=== PATIENT | male | born 1975 | race Caucasian/White ===

== ENCOUNTER 2017-07-23 08:13 | Emergency (ER) | payer OTHER | END 2017-07-23 11:18 | disposition home or self-care (01) | LOC: FER 08:13 | DX: M25.461 Effusion, right knee (principal); Z90.49 Acquired absence of other specified parts of digestive tract; Z87.442 Personal history of urinary calculi | CPT/HCPCS: 73564; 87070; 87205; J1885 ==

== ENCOUNTER → 2021-12-18 | Emergency (ER) | payer OTHER ==
[~2021-12-18] MED LIST: BACTRIM DS TAB1 EACH PO; CYCLOBENZAPRINE10 MG PO; MEDROL 4MG DOSEP4 MG PO; NAPROXEN500 MG PO; OXY-IR 5MG5 MG PO
[2021-12-18 19:46] LABS: EOSINOPHIL 1.5 % (0-5); HCT 47.8 % (42.0-52.0); HGB 16.1 g/dl (13.2-18.0); LYMPHOCYTE 33.9 % (15-48); MCH 30.4 pg (25.0-31.0); MCHC 33.7 g/dL (32.0-36.0); MCV 90.2 fL (78.0-100.0); MONOCYTE 7.9 % (0-12); MPV 9.7 fL (6.0-9.5); NEUTROPHIL 55.3 % (41-80); NRBC 0; PLT 345 K/uL (150-400); RDW 12.4 % (11.5-14.0); WBC 7.9 K/uL (4.0-10.5)
[2021-12-18 19:58] LABS: ALBUMIN 4.5 g/dL (3.4-5.0); BILIRUBIN - TOTAL 0.3 mg/dL (0.2-1.0); BUN/CREAT RATIO (CALC) 14.8 RATIO; CREATININE 0.88 mg/dL (0.67-1.17); GLOBULIN (CALCULATION) 3.8 g/dL; TOTAL PROTEIN 8.3 g/dL (6.4-8.2)
== END | disposition home or self-care (01) ==
LOC: FER 18:34
PROVIDERS: Nurse Practitioner Family
DX: R07.89 Other chest pain (principal); Z86.16 Personal history of COVID-19
CPT/HCPCS: 36415; 71045; 71275; 80053; 84484; 85025; 85379; 93005; J1100; J1885; J2405; Q9967

== ENCOUNTER 2022-01-23 11:41 | Emergency (ER) | payer OTHER ==
[2022-01-23] MEDS ORDERED: CYCLOBENZAPRINE10 MG PO (12:35)
[2022-01-23] MEDS ORDERED: MEDROL 4MG DOSEP4 MG PO (12:35)
== END 2022-01-23 13:30 | disposition home or self-care (01) ==
LOC: FER 11:41
DX: S39.012A Strain of muscle, fascia and tendon of lower back, initial encounter (principal); X50.0XXA Overexertion from strenuous movement or load, initial encounter
CPT/HCPCS: 96372; 99283; J1100; J1885